=== PATIENT | female | born 1965 | race Caucasian/White ===

== ENCOUNTER 2018-12-29 12:01 | Emergency (ER) | payer OTHER ==
--- NOTE | 2018-12-29 12:23 | ERPHSYRPT ---
- History of Present Illness Time Seen by Provider: 12/29/18 12:17 Source: patient Exam Limitations: no limitations Patient Subjective Stated Complaint: pt states i think i have bells palsy again , she states her left eusebio eof mouth and eye are not working well since this morning, she states this week she had a left ear that was bothering her . 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 co jaw pain Time of Onset/Last Time Seen Normal: today AM wake up with left side face weakness Timing/Duration: today Severity: mild Character of Deficits: new weakness, altered sensation, Left Facial Deficits: no difficulties Allergies/Adverse Reactions: No Known Drug Allergies Allergy (Unverified 04/04/14 10:51) Home Medications: Allopurinol 300 mg [Zyloprim 300 mg] 300 mg PO DAILY 04/04/14 [History] Meloxicam 7.5 mg [Mobic 7.5 MG] 15 mg PO DAILY 04/04/14 [History] Valsartan [Diovan] 40 mg PO DAILY 04/04/14 [History] Atorvastatin Calcium 20 mg DAILY 12/29/18 [History] Duloxetine HCl 60 mg DAILY 12/29/18 [History] Fenofibrate [Lipofen] 150 mg DAILY 12/29/18 [History] Hydrocodone/APAP 5-325 Tab^^^ [[place] 5-325 Tablet^^^] 1 ea DAILY 12/29/18 [ History] Leflunomide 10 mg DAILY 12/29/18 [History] Metformin HCl 500 mg [Glucophage 500 MG] 1 ea DAILY 12/29/18 [History] Hx Tetanus, Diphtheria Vaccination/Date Given: (UNSURE) Hx Influenza Vaccination/Date Given: Yes Hx Pneumococcal Vaccination/Date Given: No Immunizations Up to Date: Yes - Review of Systems Constitutional: No Fever, No Chills Eyes: No Symptoms Ears, Nose, & Throat: Ear Pain Respiratory: No Cough, No Dyspnea Cardiac: No Chest Pain, No Edema, No Syncope Abdominal/Gastrointestinal: No Abdominal Pain, No Nausea, No Vomiting, No Diarrhea Genitourinary Symptoms: No Dysuria Musculoskeletal: No Back Pain, No Neck Pain Skin: No Rash Neurological: Focal Weakness (left side of face weakness), No Dizziness, No Sensory Changes Psychological: No Symptoms Endocrine: No Symptoms All Other Systems: Reviewed and Negative - Past Medical History Pertinent Past Medical History: Yes Neurological History: No Pertinent History ENT History: No Pertinent History Cardiac History: High Cholesterol, Hypertension, Myocardial Infarction (AR) Respiratory History: No Pertinent History Endocrine Medical History: Diabetes Type II Musculoskeletal History: Arthritis, Degenerative Disk Disease, Osteoarthritis, Osteoporosis, Rheumatoid Arthritis GI Medical History: No Pertinent History History: No Pertinent History Psycho-Social History: No Pertinent History Female Reproductive Disorders: No Pertinent History Other Medical History: GOUT. No hx of heart disease - Past Surgical History Past Surgical History: Yes Neuro Surgical History: No Pertinent History Cardiac: No Pertinent History Respiratory: No Pertinent History Gastrointestinal: Hernia Repair Musculoskeletal: Orthopedic Surgery, Other Female Surgical History: Hysterectomy Other Surgical History: T4-T5 SURGERY - Social History Smoking Status: Never smoker How long have you smoked: 30 Exposure to second hand smoke: No Drug Use: none Patient Lives Alone: No - Female History Hx Last Menstrual Period: post Hx Now: No - Nursing Vital Signs Nursing Vital Signs: Initial Vital Signs Temperature 98.5 F 12/29/18 12:09 Pulse Rate 74 12/29/18 12:09 Respiratory Rate 16 12/29/18 12:09 Blood Pressure 150/83 12/29/18 12:09 O2 Sat by Pulse Oximetry 96 12/29/18 12:09 Pain Scale Pain Intensity 7 - [place] Coma Scale Best Eye Response (Sonia): (4) open spontaneously Best Verbal Response (Sonia): (5) oriented Best Motor Response (Sonia): (6) obeys commands [place] Total: 15 - Physical Exam General Appearance: no apparent distress, alert Eye Exam: bilateral eye: PERRL, EOMI Ears, Nose, Throat Exam: normal ENT inspection, moist mucous membranes, TM abnormal (L) Neck Exam: normal inspection, non-tender, supple Respiratory: normal breath sounds, lungs clear, airway intact, No respiratory distress Cardiovascular: regular rate/rhythm, No edema Gastrointestinal: soft, No tenderness, No distention Back Exam: normal inspection Extremity Exam: normal inspection, No pedal edema 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, 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 Exam: facial droop (left side), tongue midline Coordination/Gait: normal finger to nose, normal gait Skin Exam: normal color, warm, dry, No rash SpO2: 96 - Course Nursing assessment & vital signs reviewed: Yes - Progress Progress: unchanged Counseled pt/family regarding: diagnosis, need for follow-up - Departure Departure Disposition: Home Clinical Impression: Dinero's palsy Otitis externa Qualifiers: Otitis externa type: diffuse Chronicity: acute Laterality: left Qualified Code( s): H60.312 - Diffuse otitis externa, left ear Condition: Stable Critical Care Time: No Referrals: LORNA EMMANUEL MD [Primary Care Provider] - Instructions: Dinero's Palsy, Dinero's Palsy (DC), Outer Ear Infection, Outer Ear Infection (DC) Additional Instructions: Discharge/Care Plan STEPHANE PIERRE was seen on 12/29/18 in the Emergency Room. The patient was counseled regarding Diagnosis,Lab results, Imaging studies, need for follow up and when to return to the Emergency Room. Prescriptions given: Discharge Note I have spoken with the patient and/or caregivers. I have explained the patient' s condition, diagnosis and treatment plan based on the information available to me at this time. I have answered the patient's and/or caregiver's questions and addressed any concerns. The patient and/or caregivers have as good understanding of the patient's diagnosis, condition and treatment plan as can be expected at this point. The vital signs have been stable. The patient's condition is stable and appropriate for discharge from the emergency department. The patient will pursue further outpatient evaluation with the primary care physician or other designated or consulting physician as outlined in the discharge instructions. The patient and/or caregivers are agreeable to this plan of care and follow-up instructions have been explained in detail. The patient and/or caregivers have received these instruction. The patient/and or caregivers are aware that any significant change in condition or worsening of symptoms should prompt an immediate return to this or the closest emergency department or call 911. Prescriptions: Ciprofloxacin/Hydrocortisone [Cipro Hc Otic Suspension] 4 drops OT QID #10 drops.susp
[2018-12-29 12:50] VITALS: BP 143/67; PULSE 73; O2SAT 92
== END 2018-12-29 12:51 | disposition home or self-care (01) ==
LOC: ED 12:01
DX: G51.0 Bell's palsy (principal); H60.312 Diffuse otitis externa, left ear
CPT/HCPCS: 99283